=== PATIENT | female | born 1990 | race Caucasian/White ===

== ENCOUNTER 2017-03-21 23:05 | Emergency (ER) | payer SELFPAY ==
[2017-03-21 23:35] VITALS: BP 115/61
== END 2017-03-22 05:59 | disposition left against medical advice (07) ==
LOC: ED 23:05
DX: L08.9 Local infection of the skin and subcutaneous tissue, unspecified (principal); Z53.21 Procedure and treatment not carried out due to patient leaving prior to being seen by health care provider